=== PATIENT | female | born 1955 | race African-American/Black ===

== ENCOUNTER 2018-07-30 11:05 | Emergency (ER) | payer BC ==
[~2018-07-30] VITALS: Ht 165.1 cm; Wt 84.4 kg
[~2018-07-30 11:05] MED LIST: ACET650T89 PO; CETI10TA22 PO; HYDR200T5 PO; LANS15CA78 PO; LISI1TAB3 PO
--- NOTE | 2018-07-30 11:35 | EKG ---
[facility] [address] [place] [address] Test Date: 2018-07-30 Test Time: 11:09:50 Pat Name: PIYUSH THOMAS Department: Room: Gender: F Obstetrics Tech: : [id number] Requested By: SHIRLENE BROOKS Order Number: [id number] Reading MD: Measurements Intervals [place] Rate: 59 P: 119 CA: 176 QRS: 0 QRSD: 82 T: -20 QT: 418 QTc: 418 Interpretive Statements SINUS RHYTHM LEFTWARD AXIS T ABNORMALITY IN ANTERIOR LEADS INFERIOR LEADS ABNORMAL ECG No previous ECG available for comparison
[2018-07-30 11:40] LABS: BASO % 1 % (0-3); EOS % 1 % (0-3); HEMATOCRIT 40.8 % (36.0-47.0); HEMOGLOBIN 13.4 g/dL (12.0-15.5); LYMPH # 1.3 x10^3/uL (1.0-4.8); LYMPH % 32 % (24-48); MEAN CORPUSCULAR HEMOGLOBIN 30 pg (25-35); MEAN CORPUSCULAR HGB CONC 33 g/dL (31-37); MEAN CORPUSCULAR VOLUME 91 fL (79-100); MONO # 0.2 x10^3/uL (0.0-1.1); MONO % 6 % (0-9); NEUT # 2.5 x10^3uL (1.8-7.7); NEUT % 62 % (31-73); PLATELET COUNT 193 x10^3/uL (140-400); RED CELL DISTRIBUTION WIDTH 13.9 % (11.5-14.5); WHITE BLOOD COUNT 4.1 x10^3/uL (4.0-11.0)
[2018-07-30 11:50] LABS: CALCIUM 9.8 mg/dL (8.5-10.1); POTASSIUM 4.2 mmol/L (3.5-5.1)
--- NOTE | 2018-07-30 11:50 | RAD ---
EXAM: AP View of the chest DATE: 07/30/2018 11:28 AM INDICATION: CHEST PAIN COMPARISON: No Prior FINDINGS: The heart is not enlarged. Aorta is tortuous. No focal parenchymal airspace opacity. No pleural effusion or pneumothorax. IMPRESSION: 1. No radiographic evidence for acute cardiopulmonary process. Electronically signed by: Farhan Cano MD (07/30/2018 11:46 AM) [facility]
[2018-07-30 11:56] LABS: ALBUMIN 3.9 g/dL (3.4-5.0); ALBUMIN/GLOBULIN RATIO 1.1 (1.0-1.7); TOTAL BILIRUBIN 0.4 mg/dL (0.2-1.0); TOTAL PROTEIN 7.4 g/dL (6.4-8.2)
--- NOTE | 2018-07-30 12:35 | PHYS DOC ---
Past Medical History Past Medical History: Hypertension, Other Additional Past Medical Histor: PLUERICY,LUPUS Past Surgical History: Hysterectomy Additional Past Surgical Histo: bowel repair Alcohol Use: Rarely Drug Use: None Adult General Chief Complaint Chief Complaint: CHEST PAIN HPI HPI Patient is a 63 year old -[place] female with history of pleurisy, lupus potentially presents with intermittent daily chest chest pain for the past 18 months with increased frequency over the past 2 weeks. Has pain is described as sharp, pleuritic lasting less than a second at a time. However, today's episode lasted approximately 10 minutes. Pain is located over the right anterior chest radiates to the shoulder and right side of the neck. It is not associated with nausea, vomiting, sweats occurred while at rest. This is the same location, pain type the patient has experienced on and off the past 2 years. Denies flank pain, swelling, pain, tenderness back pain. No cough, fever chills, nausea vomiting or sweats. No abdominal pain. No other acute symptoms or complaints.[] Review of Systems Review of Systems Review symptoms as per history of present illness. All other review symptoms are negative. All other systems were reviewed and found to be within normal limits, except as documented in this note. Allergies Allergies Allergies Coded Allergies Type Severity Reaction Last Updated Verified No Known Drug Allergies 04/10/14 No Physical Exam Physical Exam Constitutional: Well developed, well nourished, no acute distress, non-toxic appearance. [] HENT: Normocephalic, atraumatic, bilateral external ears normal, oropharynx moist, no oral exudates, nose normal. [] Eyes: PERRLA, EOMI, conjunctiva normal, no discharge. [] Neck: Normal range of motion, no tenderness, supple, no stridor. [] Cardiovascular:Heart rate regular rhythm, no murmur [] Lungs & Thorax: Bilateral breath sounds clear to auscultation [] Abdomen: Bowel sounds normal, soft, no tenderness. [] Skin: Warm, dry, no erythema, no rash. [] Back: No tenderness, no CVA tenderness. [] Extremities: No tenderness. [] Neurologic: Alert and oriented X 3, normal motor function, normal sensory function. [] Psychologic: Affect normal, judgement normal, mood normal. [] Current Patient Data Vital Signs Vital Signs Date Time Temp Pulse Resp B/P (MAP) Pulse Ox O2 Delivery O2 Flow Rate FiO2 07/30/18 14:07 58 14 122/63 (82) 99 Room Air 07/30/18 11:10 98.3 98.3 Lab Values Laboratory Tests Test 07/30/18 11:20 White Blood Count 4.1 x10^3/uL (4.0-11.0) Red Blood Count 4.50 x10^6/uL (3.50-5.40) Hemoglobin 13.4 g/dL (12.0-15.5) Hematocrit 40.8 % (36.0-47.0) Mean Corpuscular Volume 91 fL (79-100) Mean Corpuscular Hemoglobin 30 pg (25-35) Mean Corpuscular Hemoglobin Concent 33 g/dL (31-37) Red Cell Distribution Width 13.9 % (11.5-14.5) Platelet Count 193 x10^3/uL (140-400) Neutrophils (%) (Auto) 62 % (31-73) Lymphocytes (%) (Auto) 32 % (24-48) Monocytes (%) (Auto) 6 % (0-9) Eosinophils (%) (Auto) 1 % (0-3) Basophils (%) (Auto) 1 % (0-3) Neutrophils # (Auto) 2.5 x10^3uL (1.8-7.7) Lymphocytes # (Auto) 1.3 x10^3/uL (1.0-4.8) Monocytes # (Auto) 0.2 x10^3/uL (0.0-1.1) Eosinophils # (Auto) 0.0 x10^3/uL (0.0-0.7) Basophils # (Auto) 0.0 x10^3/uL (0.0-0.2) D-Dimer (Lydia) 0.36 ug/mlFEU (0.00-0.50) Sodium Level 142 mmol/L (136-145) Potassium Level 4.2 mmol/L (3.5-5.1) Chloride Level 104 mmol/L (98-107) Carbon Dioxide Level 29 mmol/L (21-32) Anion Gap 9 (6-14) Blood Urea Nitrogen 12 mg/dL (7-20) Creatinine 1.0 mg/dL (0.6-1.0) Estimated GFR (Cockcroft-Gault) 68.0 BUN/Creatinine Ratio 12 (6-20) Glucose Level 83 mg/dL (70-99) Calcium Level 9.8 mg/dL (8.5-10.1) Total Bilirubin 0.4 mg/dL (0.2-1.0) Aspartate Amino Transferase (AST) 20 U/L (15-37) Alanine Aminotransferase (ALT) 17 U/L (14-59) Alkaline Phosphatase 59 U/L (46-116) Troponin I Quantitative < 0.017 ng/mL (0.000-0.055) Total Protein 7.4 g/dL (6.4-8.2) Albumin 3.9 g/dL (3.4-5.0) Albumin/Globulin Ratio 1.1 (1.0-1.7) Laboratory Tests 07/30/18 11:20 Laboratory Tests 07/30/18 11:20 EKG EKG [] Radiology/Procedures Radiology/Procedures CXR: nad[] Course & Med Decision Making Course & Med Decision Making Pertinent Labs and Imaging studies reviewed. (See chart for details) [Remains asymptomatic emergency department. Concern for possible early CAD versus unknown cause chest pain. Recommendations are for hospital admission for further evaluation and management. Patient initially agreed to hospital admission but then declined on further consideration. She prefers to follow-up with her PCP for outpatient stress test. She agrees to return to the emergency department should symptoms return or she change her mind regarding hospital [place]. Patient verbalizes understanding and agreement with discharge instructions prior to departure.] Dragon Disclaimer Dragon Disclaimer This electronic medical record was generated, in whole or in part, using a voice recognition dictation system. Departure Departure Impression: Primary Impression: Chest pain Disposition: 01 HOME, SELF-CARE Condition: STABLE Referrals: ROMEO [facility] (PCP) SHIRLENE BROOKS DO Jul 30, 2018 12:35
[2018-07-30 14:07] VITALS: BP 122/63
== END 2018-07-30 14:25 | disposition home or self-care (01) ==
LOC: ER 11:05
DX: R07.89 Other chest pain (principal); I10 Essential (primary) hypertension; Z90.710 Acquired absence of both cervix and uterus
CPT/HCPCS: 36415; 71045; 80053; 84484; 85025; 85379; 93005; 99284